=== PATIENT | female | born 1990 | race Caucasian/White ===

== ENCOUNTER 2018-05-16 16:46 | Outpatient (CLI) | END 2018-05-16 20:00 | disposition home or self-care (01) ==

== ENCOUNTER 2018-05-19 02:03 | Outpatient (CLI) | END 2018-05-19 05:20 | disposition home or self-care (01) ==

== ENCOUNTER 2018-05-23 23:50 | Outpatient (CLI) | END 2018-05-24 05:33 | disposition home or self-care (01) ==

== ENCOUNTER 2018-06-11 01:30 | Inpatient (IN) | END 2018-06-16 14:05 | disposition home or self-care (01) | DRG 766 ==

== ENCOUNTER 2018-07-01 04:47 | Emergency (ER) | END 2018-07-01 09:07 | disposition home or self-care (01) ==